=== PATIENT | male | born 1990 ===

== ENCOUNTER 2019-09-29 12:36 | Emergency (ER) | payer SELFPAY ==
[~2019-09-29] VITALS: Ht 182.9 cm; Wt 81.8 kg
[2019-09-29 12:46] VITALS: TEMP 99
[2019-09-29 13:14] LABS: BASO % 0.8 % (0.0-2.0); EOS % 0.8 % (0-4.0); GRAN % 56.9 % (42.2-75.2); HEMOGLOBIN 15.1 g/dl (13.5-18.0); LYMPH # 1.7 (1.2-3.4); LYMPH % 32.4 % (20.0-51.0); MEAN CELL VOLUME 94 fl (80.0-100.0); MEAN CORPUSCULAR HEMOGLOBIN 31 pg (27.0-31.0); MEAN CORPUSCULAR HGB CONC 33 g/dl (33.0-37.0); MEAN PLATELET VOLUME 9.6 fl (7.4-10.4); MONO # 0.5 (0.1-0.6); MONO % 8.7 % (1.7-9.3); PLATELET COUNT 277 K/mm3 (130-400); RED BLOOD COUNT 4.91 M/mm3 (4.20-5.60); REDCELL DISTRIBUTION WIDTH-CV 12.3 % (11.5-14.5)
[2019-09-29 13:30] LABS: ALANINE AMINOTRANSFERASE 20 U/L (4-49); ALBUMIN 4.6 gm/dL (3.5-5.0); ALKALINE PHOSPHATASE 65 U/L (50-136); ANION GAP 8 mmol/L (7-16); AST,SGOT 34 U/L (15-37); BILIRUBIN,TOTAL 0.6 mg/dL (0.0-1.0); BLOOD UREA NITROGEN 19 mg/dL (9-20); CALCIUM 9.7 mg/dL (8.4-10.2); CARBON DIOXIDE 24 mmol/L (22-30); CHLORIDE 105 mmol/L (98-107); CREATININE, serum 0.77 (0.66-1.25); GLUCOSE 89 mg/dL (74-106); POTASSIUM 4.7 mmol/L (3.4-5.0); SODIUM 137 mmol/L (137-145); TOTAL PROTEIN 8.4 gm/dL (6.4-8.2)
[2019-09-29 13:32] LABS: ACETAMINOPHEN < 10 ug/mL (10-30); ALCOHOL(ethanol),MEDICAL < 10 mg/dL; SALICYLATE < 1.0 mg/dL
[2019-09-29 13:36] LABS: COLLECTION METHOD CLEAN CATCH
[2019-09-29 13:44] LABS: PH 5 (5-8); SQUAMOUS EPITHELIAL 0-2 /hpf; URINE APPEARANCE Clear; URINE BACTERIA None Seen /hpf; URINE BILIRUBIN Negative (NEGATIVE); URINE BLOOD 1+ (NEGATIVE); URINE COLOR Yellow; URINE GLUCOSE Negative (NEGATIVE); URINE KETONE Negative (NEGATIVE); URINE LEUKOCYTE ESTERASE Negative (NEGATIVE); URINE NITRATE Negative (NEGATIVE); URINE PROTEIN(semi-quant) Negative (NEGATIVE); URINE RBC 0-2 /hpf; URINE UROBILINOGEN Negative (NEGATIVE)
[2019-09-29 13:56] LABS: TRICYCLIC ANTIDEPRESS URINE NEGATIVE
[2019-09-29 23:33] VITALS: BP 141/83; PULSE 88
== END 2019-09-29 23:30 ==
LOC: COL.ER 12:36
PROVIDERS: Emergency Medicine
DX: F29 Unspecified psychosis not due to a substance or known physiological condition (principal); F15.10 Other stimulant abuse, uncomplicated; F17.210 Nicotine dependence, cigarettes, uncomplicated